=== PATIENT | male | born 1985 | race Caucasian/White ===

== ENCOUNTER 2017-01-11 00:14 | Emergency (ER) | payer OTHER ==
[~2017-01-11] VITALS: Ht 170.2 cm; Wt 65.0 kg
[~2017-01-11 00:14] MED LIST: AZIT250T94 PO; FIORINAL PO; IBUP800T25 PO; PRED20TA PO
[2017-01-11 00:36] VITALS: Ht 170.2 cm; Wt 65.0 kg
[2017-01-11] MEDS ORDERED: TRAM50TA2 PO (02:32)
[2017-01-11] MEDS ORDERED: DOCU-144 PO (02:32)
[2017-01-11] MEDS ORDERED: HYDR25SU23 PR (02:32)
[2017-01-11] MEDS ORDERED: POLY17PO6 PO (02:32)
--- NOTE | 2017-01-11 02:47 | ERD ---
ER Documentation Chief Complaint Date/Time DATE: 01/11/17 TIME: 02:45 Chief Complaint extremely painful hemmorhoid x 3 days 9/10 HPI 31-year-old male presents here in emergency department for complaints of rectal pain, has history of hemorrhoids, inflamed 3 days ago. Patient discussed the pain as throbbing pain, 6/10 scale, is worse upon defecation. Patient denies any blood in the stool or black stool. Patient denies any abdominal pain or vomiting. Patient denies any fever or chills. ROS All systems reviewed and are negative except as per history of present illness. Medications Home Meds Active Scripts Polyethylene Glycol* (Miralax*) 17 Gm Powd.pack, 17 GM PO DAILY, #7 Prov:JOSE SAMUEL NP 01/11/17 Docusate Sodium* (Colace*) 100 Mg Capsule, 100 MG PO TID, #30 CAP Prov:JOSE SAMUEL NP 01/11/17 Hydrocortisone Acetate (Anusol-Hc) 25 Mg Supp.rect, 1 SUPP VT BID Y for HEMORROID PAIN/ITCHING, #24 SUPP.RECT Prov:JOSE SAMUEL CLIENT ADVOCATE 01/11/17 Tramadol HCl (Tramadol HCl) 50 Mg Tablet, 50 MG PO Q6 Y for SEVERE PAIN LEVEL 7- 10, #20 TAB Prov:JOSE SAMUEL NP 01/11/17 Ibuprofen* (Motrin*) 800 Mg Tab, 800 MG PO Q8, #30 TAB Prov:SNEHA KOROMA NP 01/29/16 Azithromycin* (Zithromax*) 250 Mg Tablet, 250 MG PO .NAYE DIRECTED, #6 TAB TAKE 500 MG (2 TABS) THE FIRST DAY THEN 250 MG (1 TAB) DAYS 2-5 Prov:SUSANNA ARMSTRONG MD 10/17/15 Aspirin/Caffeine/Butalbital* (Fiorinal*) 1 Cap Cap, 1 CAP PO QID for HEADACHE, # 14 CAP Prov:SUSANNA ARMSTRONG MD 10/17/15 Prednisone* (Prednisone*) 20 Mg Tab, 4 MG PO DAILY for 4 Days, TAB Prov:SUSANNA ARMSTRONG MD 10/17/15 Allergies Allergies: Coded Allergies: No Known Allergy (Unverified , 01/29/16) PMhx/Soc Medical and Surgical Hx: pt denies Medical Hx, pt denies Surgical Hx History of Surgery: No Anesthesia Reaction: No Hx Neurological Disorder: No Hx Respiratory Disorders: No Hx Cardiac Disorders: No Hx Psychiatric Problems: No Hx Miscellaneous Medical Probl: No Hx Alcohol Use: No Hx Substance Use: No Hx Tobacco Use: No FmHx Family History: No coronary disease, No diabetes, No other Physical Exam Vitals Vital Signs Date Time Temp Pulse Resp B/P Pulse Ox O2 Delivery O2 Flow Rate FiO2 01/11/17 00:36 96.5 48 15 132/79 95 Physical Exam GENERAL: The patient is well developed and appropriate for usual state of health, in no apparent distress. CHEST: Clear to auscultation bilaterally. There are no rales, wheezes or rhonchi. HEART: Regular rate and rhythm. No murmurs, clicks, rubs or gallops. No S3 or S4. ABDOMEN: Soft, nontender and nondistended. Good bowel sounds. No rebound or guarding. No gross peritonitis. No gross organomegaly or masses. No Penny sign or McBurney point tenderness. BACK: No midline or flank tenderness. EXTREMITIES: Equal pulses bilaterally. There is no peripheral clubbing, cyanosis or edema. No focal swelling or erythema. Full range of motion. Grossly neurovascularly intact. NEURO: Alert and oriented. Cranial nerves 2-12 intact. Motor strength in all 4 extremities with 5/5 strength. Sensation grossly intact. Normal speech and gait. SKIN: There is no apparent rash or petechia. The skin is warm and dry. HEMATOLOGIC AND LYMPHATIC: There is no evidence of excessive bruising or lymphedema. No gross cervical, axillary, or inguinal lymphadenopathy. RECTAL: Noted external hemorrhoid, tender on palpation, nonthrombosed. No active rectal bleeding noted at this time. Good rectal tone noted. Procedures/MDM Medical decision making: Patient's symptoms was that is consistent with acute hemorrhoid, nonthrombosed at this time, the symptoms of any acute infection. No active bleeding noted at this time. No necrosis noted. Patient was given for Anusol suppositories, Colace, MiraLAX, is advised to see a colorectal surgeon for possible removal hemorrhoid, advised to return to emergency department for any worsening symptoms. Patient was advised to eat high-fiber diet, just a lot of water, advised follow-up with primary care doctor in 2-3 days for reevaluation of symptoms, possibly be referred for evaluation by colorectal surgeon Departure Diagnosis: Primary Impression: Acute hemorrhoid Condition: Stable Patient Instructions: Hemorrhoids Referrals: [facility] YOU HAVE RECEIVED A MEDICAL SCREENING EXAM AND THE RESULTS INDICATE THAT YOU DO NOT HAVE A CONDITION THAT REQUIRES URGENT TREATMENT IN THE EMERGENCY DEPARTMENT. FURTHER EVALUATION AND TREATMENT OF YOUR CONDITION CAN WAIT UNTIL YOU ARE SEEN IN YOUR DOCTORS OFFICE WITHIN THE NEXT 1-2 DAYS. IT IS YOUR RESPONSIBILITY TO MAKE AN APPOINTMENT FOR FOLOW-UP CARE. IF YOU HAVE A PRIMARY DOCTOR --you should call your primary doctor and schedule an appointment IF YOU DO NOT HAVE A PRIMARY DOCTOR YOU CAN CALL OUR PHYSICIAN REFERRAL HOTLINE AT IF YOU CAN NOT AFFORD TO SEE A PHYSICIAN YOU CAN CHOSE FROM THE FOLLOWING [facility] [address] [facility]. [facility] [address] [employer] [facility]. [facility] [address] [facility] [address] [facility] [address] [facility]. [facility] [address] [facility]. [facility] YOU HAVE RECEIVED A MEDICAL SCREENING EXAM AND THE RESULTS INDICATE THAT YOU DO NOT HAVE A CONDITION THAT REQUIRES URGENT TREATMENT IN THE EMERGENCY DEPARTMENT. FURTHER EVALUATION AND TREATMENT OF YOUR CONDITION CAN WAIT UNTIL YOU ARE SEEN IN YOUR DOCTORS OFFICE WITHIN THE NEXT 1-2 DAYS. IT IS YOUR RESPONSIBILITY TO MAKE AN APPOINTMENT FOR FOLOW-UP CARE. IF YOU HAVE A PRIMARY DOCTOR --you should call your primary doctor and schedule and appointment IF YOU DO NOT HAVE A PRIMARY DOCTOR YOU CAN CALL OUR PHYSICIAN REFERRAL HOTLINE AT . IF YOU CAN NOT AFFORD TO SEE A PHYSICIAN YOU CAN CHOSE FROM THE FOLLOWING [facility] INSTITUTIONS: [facility] [address] [place] [address] [facility] [address] [place] [address] [address] JOSE SAMUEL NP Jan 11, 2017 02:47
== END 2017-01-11 02:58 | disposition home or self-care (01) ==
LOC: FTE 00:14
DX: K64.4 Residual hemorrhoidal skin tags (principal); Z79.82 Long term (current) use of aspirin
CPT/HCPCS: 99284